=== PATIENT | male | born 1985 | race Caucasian/White ===

== ENCOUNTER 2016-12-30 08:42 | Emergency (ER) | payer MEDICAID ==
[~2016-12-30] VITALS: Ht 188 cm; Wt 104.3 kg
[2016-12-30 08:45] VITALS: BP 128/77; PULSE 83; RESP 18; TEMP 97; O2SAT 98
--- NOTE | 2016-12-30 08:45 | NUR ---
Placed in room 6. Triaged at bedside. C/O /10 left chest pain with radiation to left arm improved with rest. Placed on cardiac sonographer, blood pressure machine and pulse oximeter. To gown for exam. Side rails up. Report given to Chan KIM.
--- NOTE | 2016-12-30 08:54 | NUR ---
ER Dr. Bailey at bedside examining patient.
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
[2016-12-30] MEDS ORDERED: NITROGLYCERIN LINGUAL 400 mCg/SPRAY SL ONE (09:15)
[2016-12-30] MEDS ORDERED: [UNRECOGNIZED DRUG - OTHER] PO (09:18)
[2016-12-30 09:28] LABS: BASOPHILS % (AUTO) 0.3 % (0.0-2.0); EOSINOPHILS # (AUTO) 0.1 K/uL (0.0-0.4); EOSINOPHILS % (AUTO) 0.8 % (0.0-4.0); HEMOGLOBIN 15.8 g/dL (14.0-18.0); LYMPHOCYTES # (AUTO) 2.1 K/uL (1.0-5.5); LYMPHOCYTES % (AUTO) 24.6 % (20.5-51.5); MEAN CORPUSCULAR HEMOGLOBIN 29 pg (27-31); MEAN CORPUSCULAR HGB CONC 34 % (32-36); MEAN CORPUSCULAR VOLUME 86 fL (79.0-98.0); MONOCYTES # (AUTO) 0.4 K/uL (0.0-1.0); MONOCYTES % (AUTO) 5.3 % (1.7-9.3); NEUTROPHILS # (AUTO) 5.8 K/uL (1.8-7.7); PLATELET COUNT (AUTO) 234 K/uL (130-430); RED BLOOD CELL COUNT(AUTO) 5.38 MIL/uL (4.2-6.2); RED CELL DISTRIBUTION WIDTH 12.2 % (9.0-15.0); WHITE BLOOD COUNT (AUTO) 8.4 K/uL (4.8-10.8)
[2016-12-30 09:36] VITALS: O2SAT 98
[2016-12-30 09:40] LABS: CALCIUM 9.3 mg/dL (8.4-11.0); CREATININE 1.09 mg/dL (0.55-1.30); POTASSIUM 4.2 mmol/L (3.5-5.1)
[2016-12-30 09:45] LABS: TOTAL BILIRUBIN 0.5 mg/dL (0.0-1.0)
[2016-12-30 09:47] LABS: INR 0.9 (0.80-1.20); PROTHROMBIN TIME 10.1 SECS (9.5-12.5)
--- NOTE | 2016-12-30 10:00 | NUR ---
Patient states chest pain subsided. Slight discomfort only. No sob. No tachycardia. Will continue to monitor.
--- NOTE | 2016-12-30 10:18 | NUR ---
Telemetry strip printed, interpreted as SINUS RHYTHM at 79 bpm, and placed on the chart.
--- NOTE | 2016-12-30 10:52 | NUR ---
Patient does not wish to proceed with medical care recommended by Dr. Bailey. Patient given information related to possible complications, up to and including , which could occur as a result of leaving hospital at this time. Patient verbalizes understanding of risks involved leaving against medical advice. Patient has signed AMA form.
== END 2016-12-30 10:53 | disposition left against medical advice (07) ==
LOC: SED 08:42
DX: R07.89 Other chest pain (principal); Z85.528 Personal history of other malignant neoplasm of kidney; Z88.0 Allergy status to penicillin; Z88.1 Allergy status to other antibiotic agents
CPT/HCPCS: 36415; 71010; 80053; 83880; 84484; 85025; 85610-TC; 85730-TC; 93005; 99285

== ENCOUNTER 2017-10-12 01:51 | Emergency (ER) | payer MEDICAID ==
[~2017-10-12] VITALS: Ht 185.4 cm; Wt 99.8 kg
[~2017-10-12 01:51] MED LIST: LIDO15SO2 MM; MORP10SO PO
[2017-10-12 01:55] VITALS: BP_SYST 135
--- NOTE | 2017-10-12 01:55 | NUR ---
Placed in room 08 . To gown for exam. Side rails up. Report given to JULIO Dawson.
--- NOTE | 2017-10-12 01:58 | NUR ---
Patient AAO x4, sitting in bed, c/o 5/10 right forearm pain with draining abscess. No acute distress noted. Will continue to monitor.
--- NOTE | 2017-10-12 01:58 | NUR ---
Swelling and redness to R forearm. aware.
--- NOTE | 2017-10-12 01:58 | NUR ---
ER at bedside examining patient.
[2017-10-12 02:15] VITALS: BP_SYST 135
--- NOTE | 2017-10-12 02:15 | NUR ---
Patient given written and verbal discharge instructions and verbalizes understanding. ER MD discussed with patient the results and treatment provided. Patient in stable condition. ID arm band removed. Rx of Tylenol with codeine #3 and Keflex given. Patient educated on pain management and to follow up with PMD. Pain Scale 2/10. Opportunity for questions provided and answered.
== END 2017-10-12 02:15 | disposition home or self-care (01) ==
LOC: SED 01:51
DX: L03.113 Cellulitis of right upper limb (principal); Z88.0 Allergy status to penicillin; Z88.1 Allergy status to other antibiotic agents
CPT/HCPCS: 99283

== ENCOUNTER 2018-01-12 12:18 | Emergency (ER) | payer MEDICAID ==
[~2018-01-12] VITALS: Ht 185.4 cm; Wt 104.3 kg
[2018-01-12 12:18] VITALS: BP_SYST 125
[2018-01-12 13:14] LABS: BASOPHILS % (AUTO) 0.5 % (0.0-2.0); EOSINOPHILS # (AUTO) 0.1 K/uL (0.0-0.4); EOSINOPHILS % (AUTO) 1.7 % (0.0-4.0); HEMATOCRIT 45.2 % (36-54); HEMOGLOBIN 14.9 g/dL (14.0-18.0); LYMPHOCYTES # (AUTO) 1.6 K/uL (1.0-5.5); MEAN CORPUSCULAR HEMOGLOBIN 29 pg (27-31); MEAN CORPUSCULAR HGB CONC 33 % (32-36); MEAN CORPUSCULAR VOLUME 87 fL (79.0-98.0); MONOCYTES # (AUTO) 0.5 K/uL (0.0-1.0); MONOCYTES % (AUTO) 7.6 % (1.7-9.3); NEUTROPHILS # (AUTO) 3.8 K/uL (1.8-7.7); NEUTROPHILS % (AUTO) 64.2 % (40.0-70.0); PLATELET COUNT (AUTO) 258 K/uL (130-430); RED BLOOD CELL COUNT(AUTO) 5.19 MIL/uL (4.2-6.2); RED CELL DISTRIBUTION WIDTH 13.4 % (9.0-15.0)
[2018-01-12 13:19] LABS: CALCIUM 9.2 mg/dL (8.4-11.0); CREATININE 1.04 mg/dL (0.55-1.30); POTASSIUM 4.1 mmol/L (3.5-5.1)
[2018-01-12 13:19] LABS: BILIRUBIN,URINE NEGATIVE (NEGATIVE); BLOOD, URINE NEGATIVE (NEGATIVE); CLARITY/URINE CLEAR (CLEAR); COLOR,URINE YELLOW (YELLOW); GLUCOSE,URINE NEGATIVE (NEGATIVE); KETONES,URINE NEGATIVE (NEGATIVE); LEUKOCYTE ESTERASE ,URINE NEGATIVE (NEGATIVE); NITRITE, URINE NEGATIVE (NEGATIVE); PROTEIN URINE NEGATIVE (NEGATIVE); UROBILINOGEN,URINE 0.2 (0.2-1.0)
[2018-01-12 13:22] LABS: PROTHROMBIN TIME 10.2 SECS (9.5-12.5)
[2018-01-12 13:29] LABS: ALBUMIN 3.8 g/dL (3.4-4.8); TOTAL BILIRUBIN 0.6 mg/dL (0.0-1.0)
[2018-01-12 15:38] VITALS: BP_SYST 110
== END 2018-01-12 15:38 | disposition home or self-care (01) ==
LOC: SED 12:18
DX: R10.84 Generalized abdominal pain (principal); R07.89 Other chest pain; Z88.0 Allergy status to penicillin; Z90.89 Acquired absence of other organs; Z85.528 Personal history of other malignant neoplasm of kidney; Z90.5 Acquired absence of kidney; Z88.1 Allergy status to other antibiotic agents
CPT/HCPCS: 36415; 71045; 71250-TC; 80053; 81003; 82150-TC; 82550-TC; 83690-TC; 83880; 84484; 85025; 85610-TC; 85730-TC; 93005; 99285

== ENCOUNTER 2018-09-12 21:23 | Inpatient (IN) | payer MEDICAID ==
[~2018-09-12] VITALS: Ht 185.4 cm; Wt 107.5 kg
[2018-09-12 21:27] VITALS: BP_SYST 140
[2018-09-12] MEDS ORDERED: NACL 0.9% 1,000 ML IV ONE (21:54)
[2018-09-12] MEDS ORDERED: ASPIRIN 81 MG TAB.CHEW PO ONE (22:00)
[2018-09-12] MEDS ORDERED: MORPHINE 4 MG/ML INJ. SYRINGE IVP ONE ×2 (22:15→23:15)
[2018-09-12 22:17] LABS: BASOPHILS # (AUTO) 0.1 K/uL (0.0-0.2); BASOPHILS % (AUTO) 0.7 % (0.0-2.0); EOSINOPHILS # (AUTO) 0.1 K/uL (0.0-0.4); EOSINOPHILS % (AUTO) 1.8 % (0.0-4.0); HEMATOCRIT 46.2 % (36-54); HEMOGLOBIN 15.8 g/dL (14.0-18.0); LYMPHOCYTES # (AUTO) 1.7 K/uL (1.0-5.5); LYMPHOCYTES % (AUTO) 23.7 % (20.5-51.5); MEAN CORPUSCULAR HEMOGLOBIN 30 pg (27-31); MEAN CORPUSCULAR HGB CONC 34 % (32-36); MEAN CORPUSCULAR VOLUME 87 fL (79.0-98.0); MONOCYTES # (AUTO) 0.5 K/uL (0.0-1.0); MONOCYTES % (AUTO) 6.6 % (1.7-9.3); NEUTROPHILS # (AUTO) 4.8 K/uL (1.8-7.7); NEUTROPHILS % (AUTO) 67.2 % (40.0-70.0); PLATELET COUNT (AUTO) 267 K/uL (130-430); RED BLOOD CELL COUNT(AUTO) 5.28 MIL/uL (4.2-6.2); RED CELL DISTRIBUTION WIDTH 12.3 % (9.0-15.0); WHITE BLOOD COUNT (AUTO) 7.2 K/uL (4.8-10.8)
[2018-09-12 22:29] LABS: CALCIUM 9.2 mg/dL (8.4-11.0); CREATININE 1.02 mg/dL (0.55-1.30); POTASSIUM 3.9 mmol/L (3.5-5.1)
[2018-09-12] MEDS ORDERED: ONDANSETRON HCL 4 MG/2 ML VIAL IVP ONE ×2 (22:30→23:15)
[2018-09-12 22:33] LABS: ALBUMIN 3.8 g/dL (3.4-4.8); TOTAL BILIRUBIN 0.2 mg/dL (0.0-1.0)
[2018-09-12 22:34] LABS: INR 0.9 (0.80-1.20); PROTHROMBIN TIME 9.5 SECS (9.5-12.5)
[2018-09-12 23:08] LABS: BILIRUBIN,URINE NEGATIVE (NEGATIVE); BLOOD, URINE NEGATIVE (NEGATIVE); CLARITY/URINE CLEAR (CLEAR); COLOR,URINE YELLOW (YELLOW); GLUCOSE,URINE NEGATIVE (NEGATIVE); KETONES,URINE NEGATIVE (NEGATIVE); LEUKOCYTE ESTERASE ,URINE NEGATIVE (NEGATIVE); NITRITE, URINE NEGATIVE (NEGATIVE); PROTEIN URINE NEGATIVE (NEGATIVE); UROBILINOGEN,URINE 0.2 (0.2-1.0)
[2018-09-12] MEDS ORDERED: ACET325T53 PO (23:22)
[2018-09-12] MEDS ORDERED: ASPI-862 PO (23:22)
[2018-09-13] MEDS ORDERED: MORPHINE 2 MG/ML INJ. SYRINGE IVP PRN ×3 (00:45→09:15)
[2018-09-13] MEDS ORDERED: NACL 0.9% 1,000 ML IV ONE (00:45)
[2018-09-13] MEDS ORDERED: MORPHINE 4 MG/ML INJ. SYRINGE IVP PRN (00:45)
[2018-09-13 01:04] VITALS: BP_SYST 131
[2018-09-13] MEDS ORDERED: PANTOPRAZOLE SODIUM 40 MG TAB PO SCH (06:00)
[2018-09-13 08:05] VITALS: BP_SYST 117
[2018-09-13] MEDS ORDERED: ENOXAPARIN SODIUM 40 MG/0.4 ML SYRINGE SUBCUT SCH (09:00)
[2018-09-13] MEDS ORDERED: MUPIROCIN 2% TOPICAL OINTMENT 22 GM NS PRN (09:15)
[2018-09-13] MEDS ORDERED: POTASSIUM CHLORIDE 20 MEQ TAB.PRT.SR PO PRN (09:15)
[2018-09-13] MEDS ORDERED: ZOLPIDEM TARTRATE 5 MG TABLET PO PRN (09:15)
[2018-09-13] MEDS ORDERED: ONDANSETRON HCL 4 MG/2 ML VIAL IVP PRN (09:15)
[2018-09-13] MEDS ORDERED: LORazepam 2 MG/ML VIAL IVP PRN (09:15)
[2018-09-13] MEDS ORDERED: DOCUSATE SODIUM 100 MG CAPSULE PO PRN (09:15)
[2018-09-13] MEDS ORDERED: ASPIRIN 325 MG TABLET (ECOTRIN) PO ONE (09:15)
[2018-09-13] MEDS ORDERED: ACETAMINOPHEN 325 MG TABLET PO PRN (09:15)
[2018-09-13] MEDS ORDERED: MAGNESIUM SULFATE 50 ML IV PRN (09:15)
[2018-09-13] MEDS ORDERED: PANTOPRAZOLE SODIUM 40 MG TAB PO ONE (09:30)
[2018-09-13 11:46] LABS: BARBITURATE, URINE NEGATIVE (NEG <=200); BENZODIAZEPINE, URINE NEGATIVE (NEG <=150); CANNABINOID, URINE NEGATIVE (NEG <=50); COCAINE, URINE NEGATIVE (NEG <=150); METHAMPHETAMINES SCREEN,URINE NEGATIVE (NEG <=500); OPIATE, URINE POSITIVE (NEG <=100); PHENCYCLIDINE SCREEN,URINE NEGATIVE (NEG <=25); UR TRICYCLIC ANTIDEPRESSANTS NEGATIVE (NEG <=300); URINE AMPHETAMINE NEGATIVE (NEG <=500); URINE METHADONE NEGATIVE (NEG <=200); URINE OXYCODONE SCREEN NEGATIVE (NEG <=100); URINE PROPOXYPHENE SCREEN NEGATIVE (NEG <=300)
[2018-09-13 12:37] VITALS: BP_SYST 131
[2018-09-13 16:25] VITALS: BP_SYST 136
[2018-09-13 16:31] VITALS: BP_SYST 136
[2018-09-14] MEDS ORDERED: ASPIRIN 325 MG TABLET (ECOTRIN) PO SCH (09:00)
== END 2018-09-13 16:55 | disposition left against medical advice (07) | DRG 243 ==
LOC: SED 21:23 → STU 09-13 00:32
PROVIDERS: ADMIT General Practice; ATTEND General Practice
DX: K21.9 Gastro-esophageal reflux disease without esophagitis (principal); I24.9 Acute ischemic heart disease, unspecified; C64.1 Malignant neoplasm of right kidney, except renal pelvis; Z53.21 Procedure and treatment not carried out due to patient leaving prior to being seen by health care provider; Z79.82 Long term (current) use of aspirin; Z79.899 Other long term (current) drug therapy; Z88.0 Allergy status to penicillin; Z92.21 Personal history of antineoplastic chemotherapy; Z88.1 Allergy status to other antibiotic agents; Z90.2 Acquired absence of lung [part of]; Z90.5 Acquired absence of kidney; Z80.8 Family history of malignant neoplasm of other organs or systems; Z85.118 Personal history of other malignant neoplasm of bronchus and lung
CPT/HCPCS: 36415; 71045; 80053; 80307; 81003; 82150-TC; 82550-TC; 83036; 83690-TC; 84484; 85025; 85610-TC; 85730-TC; 93005; 93306; 96374; 96375; 96376; 99285; J1650; J2270; J2405; J7030

== ENCOUNTER 2018-10-03 20:14 | Emergency (ER) | payer MEDICAID ==
[~2018-10-03] VITALS: Ht 185.4 cm; Wt 106.6 kg
[~2018-10-03 20:14] MED LIST changes: +ACET325T53 PO; +ASPI-862 PO; -LIDO15SO2 MM; -MORP10SO PO
[2018-10-03] MEDS ORDERED: NACL 0.9% 1,000 ML IV ONE (20:27)
[2018-10-03] MEDS ORDERED: MORPHINE 4 MG/ML INJ. SYRINGE IVP ONE (20:30)
[2018-10-03] MEDS ORDERED: ONDANSETRON HCL 4 MG/2 ML VIAL IVP ONE (20:30)
--- NOTE | 2018-10-03 20:43 | NUR ---
Note tonya in EDM - 10/03/18 at 2118 by [email or web address] Placed in room 04 . To gown for exam. Side rails up. Report given to JULIO Dawson.
[2018-10-03 20:50] LABS: BASOPHILS # (AUTO) 0.1 K/uL (0.0-0.2); BASOPHILS % (AUTO) 0.9 % (0.0-2.0); EOSINOPHILS # (AUTO) 0.1 K/uL (0.0-0.4); EOSINOPHILS % (AUTO) 1.2 % (0.0-4.0); HEMATOCRIT 47.4 % (36-54); HEMOGLOBIN 15.8 g/dL (14.0-18.0); LYMPHOCYTES % (AUTO) 28.8 % (20.5-51.5); MEAN CORPUSCULAR HEMOGLOBIN 29 pg (27-31); MEAN CORPUSCULAR HGB CONC 33 % (32-36); MEAN CORPUSCULAR VOLUME 87 fL (79.0-98.0); MONOCYTES # (AUTO) 0.5 K/uL (0.0-1.0); MONOCYTES % (AUTO) 7.4 % (1.7-9.3); NEUTROPHILS # (AUTO) 4.2 K/uL (1.8-7.7); NEUTROPHILS % (AUTO) 61.7 % (40.0-70.0); PLATELET COUNT (AUTO) 271 K/uL (130-430); RED BLOOD CELL COUNT(AUTO) 5.43 MIL/uL (4.2-6.2); RED CELL DISTRIBUTION WIDTH 12.9 % (9.0-15.0); WHITE BLOOD COUNT (AUTO) 6.9 K/uL (4.8-10.8)
[2018-10-03 21:00] VITALS: BP_SYST 140
--- NOTE | 2018-10-03 21:00 | NUR ---
Placed in room 06 . Placed on cafeteria monitor, blood pressure machine and pulse oximeter. To gown for exam. Side rails up. Report given to JULIO Dawson.
[2018-10-03 21:03] LABS: CALCIUM 9.5 mg/dL (8.4-11.0); CREATININE 0.97 mg/dL (0.55-1.30); INR 0.9 (0.80-1.20); POTASSIUM 3.9 mmol/L (3.5-5.1); PROTHROMBIN TIME 9.3 SECS (9.5-12.5)
--- NOTE | 2018-10-03 21:05 | NUR ---
ER at bedside examining patient.
--- NOTE | 2018-10-03 21:05 | NUR ---
Patient AOx4, ambulatory, presents to ER with complaint of scrotal swelling and 7/10 suprapubic discomfort. Patient states pain worsens with ambulation. Patient has hx of renal cell CA and stage 4 lung CA. No other symptoms or complaints. Girlfriend at bedside.
[2018-10-03 21:08] LABS: ALBUMIN 4.1 g/dL (3.4-4.8); TOTAL BILIRUBIN 0.3 mg/dL (0.0-1.0)
--- NOTE | 2018-10-03 21:15 | NUR ---
# 22 gauge angiocath placed to LAC. Use of asceptic technique. Opsite placed over site. Blood return noted. Blood for lab drawn from site. Flushed with 10 cc of normal saline. No evidence of infiltration noted. Patient tolerated well.
[2018-10-03 22:27] LABS: BILIRUBIN,URINE NEGATIVE (NEGATIVE); BLOOD, URINE NEGATIVE (NEGATIVE); CLARITY/URINE CLEAR (CLEAR); COLOR,URINE YELLOW (YELLOW); GLUCOSE,URINE NEGATIVE (NEGATIVE); KETONES,URINE NEGATIVE (NEGATIVE); LEUKOCYTE ESTERASE ,URINE NEGATIVE (NEGATIVE); NITRITE, URINE NEGATIVE (NEGATIVE); PH,URINE 6.5 (5.0-8.0); PROTEIN URINE NEGATIVE (NEGATIVE); UROBILINOGEN,URINE 0.2 (0.2-1.0)
[2018-10-03 22:41] VITALS: BP_SYST 136
--- NOTE | 2018-10-03 22:41 | NUR ---
Patient given written and verbal discharge instructions and verbalizes understanding. ER MD discussed with patient the results and treatment provided. Patient in stable condition. ID arm band removed. IV catheter removed intact and dressing applied, no active bleeding. Rx of Doxycycline and Tylenol given. Patient educated on pain management and to follow up with PMD. Pain Scale 2/10 tolerable to patient. Opportunity for questions provided and answered. Medication side effect fact sheet provided.
== END 2018-10-03 22:41 | disposition home or self-care (01) ==
LOC: SED 20:14
DX: N50.82 Scrotal pain (principal); R03.0 Elevated blood-pressure reading, without diagnosis of hypertension; Z90.89 Acquired absence of other organs; Z85.528 Personal history of other malignant neoplasm of kidney; Z79.82 Long term (current) use of aspirin; Z88.0 Allergy status to penicillin; Z88.1 Allergy status to other antibiotic agents
CPT/HCPCS: 36415; 76870; 80053; 81003; 82550; 82150; 83690; 84484; 85025; 85610; 85730; 96374; 96375; 99285; J2270; J2405; J7030

== ENCOUNTER 2019-05-31 14:11 | Emergency (ER) | payer OTHER, MEDICAID ==
[~2019-05-31] VITALS: Ht 185.4 cm; Wt 111.1 kg
[2019-05-31 14:16] VITALS: BP_SYST 129
[2019-05-31 14:54] LABS: BASOPHILS % (AUTO) 0.8 % (0.0-2.0); EOSINOPHILS # (AUTO) 0.1 K/uL (0.0-0.4); EOSINOPHILS % (AUTO) 1.3 % (0.0-4.0); HEMOGLOBIN 15.7 g/dL (14.0-18.0); LYMPHOCYTES # (AUTO) 1.6 K/uL (1.0-5.5); MONOCYTES # (AUTO) 0.4 K/uL (0.0-1.0); MONOCYTES % (AUTO) 6.6 % (1.7-9.3); RED CELL DISTRIBUTION WIDTH 13.4 % (9.0-15.0)
[2019-05-31 14:59] LABS: HEMATOCRIT 46.1 % (36-54); LYMPHOCYTES % (AUTO) 27.6 % (20.5-51.5); MEAN CORPUSCULAR HEMOGLOBIN 29 pg (27-31); MEAN CORPUSCULAR HGB CONC 34 % (32-36); MEAN CORPUSCULAR VOLUME 86 fL (79.0-98.0); NEUTROPHILS # (AUTO) 3.8 K/uL (1.8-7.7); NEUTROPHILS % (AUTO) 63.7 % (40.0-70.0); PLATELET COUNT (AUTO) 231 K/uL (130-430); RED BLOOD CELL COUNT(AUTO) 5.39 MIL/uL (4.2-6.2); WHITE BLOOD COUNT (AUTO) 5.9 K/uL (4.8-10.8)
[2019-05-31 15:01] LABS: POTASSIUM 3.8 mmol/L (3.5-5.1)
[2019-05-31 15:06] LABS: INR 0.9 (0.80-1.20); PROTHROMBIN TIME 9.7 SECS (9.5-12.5)
[2019-05-31 15:07] LABS: ALBUMIN 3.6 g/dL (3.4-4.8); TOTAL BILIRUBIN 0.4 mg/dL (0.0-1.0)
[2019-05-31 16:50] VITALS: BP_SYST 108
== END 2019-05-31 16:50 | disposition home or self-care (01) ==
LOC: SED 14:11
DX: R07.82 Intercostal pain (principal); Z85.53 Personal history of malignant neoplasm of renal pelvis; Z79.82 Long term (current) use of aspirin; Z79.899 Other long term (current) drug therapy; Z88.0 Allergy status to penicillin; Z88.1 Allergy status to other antibiotic agents
CPT/HCPCS: 36415; 71045; 80053; 83880; 84484; 85025; 85610-TC; 85730-TC; 93005; 99284

== ENCOUNTER 2023-02-04 14:57 | Inpatient (IN) | payer OTHER, MEDICAID ==
[~2023-02-04] VITALS: Ht 185.4 cm; Wt 97.1 kg
[2023-02-04 15:00] VITALS: BP_SYST 125
[2023-02-04] MEDS ORDERED: IBUP-1969 PO (15:22)
[2023-02-04] MEDS ORDERED: PHEDM120 PO (15:22)
[2023-02-04 16:02] LABS: BASOPHILS % (AUTO) 0.4 % (0.0-2.0); EOSINOPHILS # (AUTO) 0.1 K/uL (0.0-0.4); EOSINOPHILS % (AUTO) 1.4 % (0.0-4.0); HEMATOCRIT 45.1 % (36-54); HEMOGLOBIN 15.4 g/dL (14.0-18.0); LYMPHOCYTES # (AUTO) 1.8 K/uL (1.0-5.5); LYMPHOCYTES % (AUTO) 27.9 % (20.5-51.5); MEAN CORPUSCULAR HEMOGLOBIN 31 pg (27-31); MEAN CORPUSCULAR HGB CONC 34 % (32-36); MEAN CORPUSCULAR VOLUME 91 fL (79.0-98.0); MONOCYTES # (AUTO) 0.4 K/uL (0.0-1.0); MONOCYTES % (AUTO) 6.8 % (1.7-9.3); NEUTROPHILS # (AUTO) 4.1 K/uL (1.8-7.7); NEUTROPHILS % (AUTO) 63.5 % (40.0-70.0); PLATELET COUNT (AUTO) 236 K/uL (130-430); RED BLOOD CELL COUNT(AUTO) 4.97 MIL/uL (4.2-6.2); RED CELL DISTRIBUTION WIDTH 16.3 % (9.0-15.0); WHITE BLOOD COUNT (AUTO) 6.5 K/uL (4.8-10.8)
[2023-02-04 16:27] LABS: ANION GAP 6 (5-15); CALCIUM 8.5 mg/dL (8.4-11.0); CHLORIDE 103 mmol/L (98-107); CREATININE 1.41 mg/dL (0.55-1.30); GFR AFRICAN AMERICAN 72 mL/min (>90); GLUCOSE 88 mg/dL (70-99); UREA NITROGEN, BLOOD 16 mg/dL (8-21)
[2023-02-04 16:40] LABS: ALANINE AMINOTRANSFERASE 48 U/L (12-78); ASPARTATE AMINOTRANSFERASE 25 U/L (10-37); FREE T4 (FREE THYROXINE) 1.1 ng/dL (0.6-1.6); THYROID STIMULATING HORMONE 1.03 uIu/mL (0.34-4.82)
[2023-02-04 16:54] LABS: TOTAL BILIRUBIN 0.2 mg/dL (0.0-1.0)
[2023-02-04] MEDS ORDERED: CABO20TA PO (22:01)
[2023-02-04] MEDS ORDERED: SYN50 PO (22:01)
[2023-02-04] MEDS ORDERED: HYDR25TA4 PO (22:01)
[2023-02-04] MEDS ORDERED: LOM2.5 PO (22:01)
[2023-02-04] MEDS ORDERED: ACETAMINOPHEN 325 MG TABLET PO PRN (22:45)
[2023-02-04] MEDS ORDERED: PANTOPRAZOLE SODIUM 40 MG TAB PO ONE (22:45)
[2023-02-04] MEDS ORDERED: DIPHENOXYLATE HCL/ATROP SULF 2.5 MG TAB PO PRN (22:45)
[2023-02-04] MEDS ORDERED: ENOXAPARIN SODIUM 40 MG/0.4 ML SYRINGE SUBCUT ONE (23:00)
[2023-02-04] MEDS ORDERED: TEMAZEPAM 15 MG CAPSULE PO PRN (23:15)
[2023-02-04 23:22] VITALS: BP_SYST 122
[2023-02-05] VITALS (7 sets, daily range): BP systolic 107–132
[2023-02-05 00:43] LABS: PROTHROMBIN TIME 10.4 SECS (9.5-12.5)
[2023-02-05] MEDS: LEVOTHYROXINE SODIUM 0.05 MG TABLET PO SCH (06:59)
[2023-02-05 07:39] LABS: BASOPHILS % (AUTO) 0.3 % (0.0-2.0); EOSINOPHILS # (AUTO) 0.1 K/uL (0.0-0.4); EOSINOPHILS % (AUTO) 1.7 % (0.0-4.0); HEMATOCRIT 45.7 % (36-54); HEMOGLOBIN 15.6 g/dL (14.0-18.0); LYMPHOCYTES # (AUTO) 1.9 K/uL (1.0-5.5); MEAN CORPUSCULAR HEMOGLOBIN 31 pg (27-31); MEAN CORPUSCULAR HGB CONC 34 % (32-36); MEAN CORPUSCULAR VOLUME 92 fL (79.0-98.0); MONOCYTES # (AUTO) 0.5 K/uL (0.0-1.0); MONOCYTES % (AUTO) 6.7 % (1.7-9.3); NEUTROPHILS # (AUTO) 4.4 K/uL (1.8-7.7); NEUTROPHILS % (AUTO) 63.3 % (40.0-70.0); PLATELET COUNT (AUTO) 224 K/uL (130-430); RED BLOOD CELL COUNT(AUTO) 4.98 MIL/uL (4.2-6.2); RED CELL DISTRIBUTION WIDTH 16.5 % (9.0-15.0); WHITE BLOOD COUNT (AUTO) 6.9 K/uL (4.8-10.8)
[2023-02-05 07:51] LABS: ALBUMIN 2.7 g/dL (3.4-4.8); CALCIUM 8.4 mg/dL (8.4-11.0); CREATININE 0.98 mg/dL (0.55-1.30); FREE T4 (FREE THYROXINE) 1.2 ng/dl (0.8-1.5); THYROID STIMULATING HORMONE 1.47 uIu/mL (0.36-3.74); TOTAL BILIRUBIN 0.3 mg/dL (0.0-1.0)
[2023-02-05] MEDS: PANTOPRAZOLE SODIUM 40 MG TAB PO SCH (08:43)
[2023-02-05] MEDS: HYDROCHLOROTHIAZIDE 25 MG TABLET (HCTZ) PO SCH (08:48)
[2023-02-05] MEDS ORDERED: ASPIRIN 325 MG TABLET (ECOTRIN) PO SCH ×2 (09:00)
[2023-02-05] MEDS ORDERED: *LOVENOX 1MG/KG Q12H/PHARMACY XX ONE (09:30)
[2023-02-05] MEDS: ENOXAPARIN SODIUM 100 MG/ML SYRINGE SUBCUT SCH ×2 (10:24→22:59)
[2023-02-05] MEDS ORDERED: MONT-40 PO (18:55)
[2023-02-05] MEDS ORDERED: FEXO180T94 PO (18:55)
[2023-02-05] MEDS ORDERED: ENOXAPARIN SODIUM 40 MG/0.4 ML SYRINGE SUBCUT SCH (21:00)
[2023-02-05] MEDS: METOPROLOL TARTRATE 25 MG TABLET PO SCH (21:06)
[2023-02-06] VITALS: BP_SYST 128
[2023-02-06 04:00] VITALS: BP_SYST 123
[2023-02-06 05:44] LABS: BASOPHILS % (AUTO) 0.3 % (0.0-2.0); EOSINOPHILS # (AUTO) 0.1 K/uL (0.0-0.4); EOSINOPHILS % (AUTO) 2.1 % (0.0-4.0); HEMATOCRIT 44.9 % (36-54); HEMOGLOBIN 15.2 g/dL (14.0-18.0); LYMPHOCYTES # (AUTO) 2.2 K/uL (1.0-5.5); LYMPHOCYTES % (AUTO) 35.1 % (20.5-51.5); MEAN CORPUSCULAR HEMOGLOBIN 31 pg (27-31); MEAN CORPUSCULAR HGB CONC 34 % (32-36); MEAN CORPUSCULAR VOLUME 91 fL (79.0-98.0); MONOCYTES # (AUTO) 0.4 K/uL (0.0-1.0); NEUTROPHILS # (AUTO) 3.5 K/uL (1.8-7.7); NEUTROPHILS % (AUTO) 56.5 % (40.0-70.0); PLATELET COUNT (AUTO) 205 K/uL (130-430); RED BLOOD CELL COUNT(AUTO) 4.92 MIL/uL (4.2-6.2); WHITE BLOOD COUNT (AUTO) 6.2 K/uL (4.8-10.8)
[2023-02-06 06:03] LABS: CALCIUM 7.9 mg/dL (8.4-11.0); CREATININE 1.16 mg/dL (0.55-1.30)
[2023-02-06] MEDS: LEVOTHYROXINE SODIUM 0.05 MG TABLET PO SCH (06:14)
[2023-02-06 08:00] VITALS: BP_SYST 107
[2023-02-06] MEDS ORDERED: ASPIRIN 81 MG TAB.CHEW PO ONE (08:15)
[2023-02-06] MEDS: HYDROCHLOROTHIAZIDE 25 MG TABLET (HCTZ) PO SCH (08:42)
[2023-02-06] MEDS: ENOXAPARIN SODIUM 100 MG/ML SYRINGE SUBCUT SCH (08:43)
[2023-02-06] MEDS: PANTOPRAZOLE SODIUM 40 MG TAB PO SCH (08:49)
[2023-02-06] MEDS: METOPROLOL TARTRATE 25 MG TABLET PO SCH (08:50)
[2023-02-07] MEDS ORDERED: ASPIRIN 81 MG TABLET(ECOTRIN) PO SCH (09:00)
== END 2023-02-06 11:00 | disposition short-term general hospital (02) | DRG 280 ==
LOC: SED 14:57 → STU 21:24
PROVIDERS: ADMIT Internal Medicine; ATTEND Internal Medicine
DX: I21.4 Non-ST elevation (NSTEMI) myocardial infarction (principal); N17.0 Acute kidney failure with tubular necrosis; C64.9 Malignant neoplasm of unspecified kidney, except renal pelvis; E03.9 Hypothyroidism, unspecified; I12.9 Hypertensive chronic kidney disease with stage 1 through stage 4 chronic kidney disease, or unspecified chronic kidney disease; N18.9 Chronic kidney disease, unspecified; T45.1X5A Adverse effect of antineoplastic and immunosuppressive drugs, initial encounter; Z20.822 Contact with and (suspected) exposure to COVID-19; Z85.528 Personal history of other malignant neoplasm of kidney; Z79.899 Other long term (current) drug therapy; Z79.82 Long term (current) use of aspirin; Z88.0 Allergy status to penicillin; Z88.8 Allergy status to other drugs, medicaments and biological substances; Y92.89 Other specified places as the place of occurrence of the external cause; I25.10 Atherosclerotic heart disease of native coronary artery without angina pectoris
CPT/HCPCS: 36415; 71045; 80048; 80053; 80061; 82550; 84439; 84443; 84484; 85025; 85379; 85610-TC; 85730-TC; 93005; 93306; 99285; G0378; J1650

== ENCOUNTER 2023-05-30 09:26 | Outpatient (CLI) | payer OTHER, MEDICAID ==
[~2023-05-30 09:26] MED LIST changes: +CABO20TA PO; +FEXO180T94 PO; +HYDR25TA4 PO; +LOM2.5 PO; +MONT-40 PO; +SYN50 PO
== END 2023-05-30 18:13 | disposition short-term general hospital (02) ==
LOC: SCA 09:26
PROVIDERS: ATTEND Internal Medicine Cardiovascular Disease
DX: I07.1 Rheumatic tricuspid insufficiency (principal); R94.31 Abnormal electrocardiogram [ECG] [EKG]; I11.9 Hypertensive heart disease without heart failure; R07.89 Other chest pain
CPT/HCPCS: 93306

== ENCOUNTER 2023-06-28 19:18 | Emergency (ER) | payer OTHER, MEDICAID ==
[~2023-06-28] VITALS: Ht 185.4 cm; Wt 95.3 kg
[2023-06-28 19:40] VITALS: BP_SYST 109; PULSE 81; RESP 19; TEMP 97.2; O2SAT 97
[2023-06-29 00:05] LABS: BASOPHILS % (AUTO) 0.4 % (0.0-2.0); EOSINOPHILS # (AUTO) 0.1 K/uL (0.0-0.4); EOSINOPHILS % (AUTO) 1.3 % (0.0-4.0); HEMOGLOBIN 15.4 g/dL (14.0-18.0); LYMPHOCYTES # (AUTO) 1.7 K/uL (1.0-5.5); LYMPHOCYTES % (AUTO) 24.1 % (20.5-51.5); MEAN CORPUSCULAR HEMOGLOBIN 31 pg (27-31); MEAN CORPUSCULAR HGB CONC 34 % (32-36); MEAN CORPUSCULAR VOLUME 94 fL (79.0-98.0); MONOCYTES # (AUTO) 0.4 K/uL (0.0-1.0); MONOCYTES % (AUTO) 5.2 % (1.7-9.3); NEUTROPHILS # (AUTO) 4.8 K/uL (1.8-7.7); PLATELET COUNT (AUTO) 223 K/uL (130-430); RED CELL DISTRIBUTION WIDTH 16.4 % (9.0-15.0); WHITE BLOOD COUNT (AUTO) 6.9 K/uL (4.8-10.8)
[2023-06-29 00:06] LABS: BILIRUBIN,URINE NEGATIVE (NEGATIVE); BLOOD, URINE NEGATIVE (NEGATIVE); CLARITY/URINE CLEAR (CLEAR); COLOR,URINE YELLOW (YELLOW); GLUCOSE,URINE NEGATIVE (NEGATIVE); KETONES,URINE NEGATIVE (NEGATIVE); LEUKOCYTE ESTERASE ,URINE NEGATIVE (NEGATIVE); NITRITE, URINE NEGATIVE (NEGATIVE); PROTEIN URINE NEGATIVE (NEGATIVE); UROBILINOGEN,URINE 0.2 (0.2-1.0)
[2023-06-29 00:11] LABS: ALBUMIN 2.9 g/dL (3.4-4.8); CALCIUM 8.3 mg/dL (8.4-11.0); CREATININE 0.98 mg/dL (0.55-1.30); TOTAL BILIRUBIN 0.4 mg/dL (0.0-1.0)
[2023-06-29 02:43] VITALS: BP_SYST 127; PULSE 67; RESP 16; TEMP 97.7; O2SAT 99
== END 2023-06-29 02:43 | disposition home or self-care (01) ==
LOC: SED 19:18
DX: R04.2 Hemoptysis (principal); C78.00 Secondary malignant neoplasm of unspecified lung; Z88.0 Allergy status to penicillin; Z88.1 Allergy status to other antibiotic agents; Z79.899 Other long term (current) drug therapy
CPT/HCPCS: 36415; 71250-TC; 76376; 80053; 81003; 85025; 99284